=== PATIENT | male | born 1965 | race African-American/Black ===

== ENCOUNTER 2019-05-04 08:34 | Emergency (ER) | payer BC ==
[~2019-05-04] VITALS: Ht 208.3 cm; Wt 129.6 kg
[2019-05-04] MEDS ORDERED: ONDANSETRON HCL 4 MG/2 ML VIAL IVP ONE (09:30)
[2019-05-04] MEDS ORDERED: KETOROLAC TROMETHAMINE 30 MG/ML VIAL IVP ONE (09:30)
[2019-05-04] MEDS ORDERED: SODIUM CHLORIDE 0.9% 1,000 ML IV ONE (09:30)
[2019-05-04] MEDS ORDERED: HYDROmorphone 2 MG/ML SYRINGE IVP ONE (09:30)
[2019-05-04 09:53] LABS: BASOPHILS % (AUTO) 0.3 % (0.0-2.0); EOSINOPHILS % (AUTO) 0.2 % (1.0-6.0); HEMATOCRIT 43.1 % (41-53); HEMOGLOBIN 14.3 g/dL (13.5-17.5); LYMPHOCYTES # (AUTO) 0.7 K/uL (1.0-4.8); LYMPHOCYTES % (AUTO) 8.9 % (22.0-44.0); MEAN CORPUSCULAR HEMOGLOBIN 31.2 pg (26.0-34.0); MEAN CORPUSCULAR HGB CONC 33.1 G/dL (31.0-37.0); MEAN CORPUSCULAR VOLUME 94 fL (80-100); MONOCYTES # (AUTO) 0.4 K/uL (0.1-1.0); MONOCYTES % (AUTO) 4.6 % (2.0-9.0); NEUTROPHILS # (AUTO) 7.2 K/uL (1.8-7.7); PLATELET COUNT (AUTO) 246 K/uL (150-450); RED BLOOD CELL COUNT(AUTO) 4.58 MIL/uL (4.50-5.90); RED CELL DISTRIBUTION WIDTH 12.5 % (11.5-14.5)
[2019-05-04 10:05] LABS: CALCIUM, TOTAL 9.5 mg/dL (8.8-10.5); CREATININE 1.71 mg/dL (0.60-1.30); POTASSIUM 3.6 mmol/L (3.5-5.1)
[2019-05-04 10:11] LABS: ALBUMIN 4.3 g/dL (3.4-5.0); TOTAL PROTEIN, SERUM 8.1 g/dL (6.4-8.2)
[2019-05-04] MEDS ORDERED: HYDROCODONE/ACETAMINOPHEN 5-325 MG TABLET PO ONE (11:30)
[2019-05-04 13:00] VITALS: BP 131/88
== END 2019-05-04 13:59 | disposition home or self-care (01) ==
LOC: EMS 08:38
DX: N20.1 Calculus of ureter (principal)
CPT/HCPCS: 36415; 74176; 80053; 81002; 83690; 84484; 85025; 96361; 96374; 96375; 99284; J1170; J1885; J2405; J7030